=== PATIENT | female | born 1945 | race Caucasian/White ===

== ENCOUNTER 2018-10-07 20:14 | Emergency (ER) | payer MEDICARE, BC ==
[2018-10-07] MEDS: morphine 4 MG/ML VIAL IV (23:03)
[2018-10-07] MEDS: ONDANSETRON 4 MG INJ IV (23:03)
[2018-10-08] MEDS: DIPHTH/TET/ACEL PERTUSS (ADULT) 0.5 ML VIAL IM*
[2018-10-08] MEDS: BACITRACIN 0.9 GM OINT TOP (00:50)
[2018-10-08] MEDS: oxyCODONE 5 MG TAB PO (01:24)
== END 2018-10-08 01:41 | disposition home or self-care (01) ==
LOC: E/R 10-08 01:41
DX: S62.101A Fracture of unspecified carpal bone, right wrist, initial encounter for closed fracture (principal); I10 Essential (primary) hypertension; E11.9 Type 2 diabetes mellitus without complications; S00.81XA Abrasion of other part of head, initial encounter; R51 Headache; W10.9XXA Fall (on) (from) unspecified stairs and steps, initial encounter; Y92.009 Unspecified place in unspecified non-institutional (private) residence as the place of occurrence of the external cause; Z23 Encounter for immunization
CPT/HCPCS: 29105; 70450; 73090-RT; 73110-RT; 90471; 90715; 96374; 96375; 99285-25